=== PATIENT | female | born 1950 | race Two or more races ===

== ENCOUNTER 2019-04-18 10:13 | Inpatient (IN) | payer MEDICAID ==
[2019-04-01 10:50] LABS: BASOPHILS % (AUTO) 1.1 % (0.0-2.0); EOSINOPHILS % (AUTO) 1.8 % (0.0-3.0); HEMATOCRIT 41.5 % (37.0-47.0); HEMOGLOBIN 13.2 G/DL (12.0-16.0); LYMPHOCYTES % (AUTO) 20.3 % (20.0-45.0); MEAN CORPUSCULAR VOLUME 78 FL (80-99); MONOCYTES % (AUTO) 9.7 % (1.0-10.0); NEUTROPHILS % (AUTO) 67.2 % (45.0-75.0); PLATELET COUNT 184 K/UL (150-450); RED BLOOD COUNT 5.33 M/UL (4.20-5.40)
[2019-04-01 11:04] LABS: ANION GAP 11 mmol/L (5-15); APPEARANCE,URINE CLEAR; BILIRUBIN, URINE NEGATIVE (NEGATIVE); BLOOD UREA NITROGEN 22 mg/dL (7-18); CALCIUM 8.7 MG/DL (8.5-10.1); CARBON DIOXIDE 26 MMOL/L (21-32); CHLORIDE 104 MMOL/L (98-107); COLOR,URINE PALE YELLOW; CREATININE 0.8 MG/DL (0.55-1.30); GLUCOSE, URINE (UA) NEGATIVE (NEGATIVE); KETONES,URINE NEGATIVE (NEGATIVE); LEUKOCYTE ESTERASE ,URINE 1+ (NEGATIVE); NITRITE,URINE NEGATIVE (NEGATIVE); PH,URINE 6.5 (4.5-8.0); POTASSIUM 4.3 MMOL/L (3.5-5.1); PROTEIN,URINE NEGATIVE (NEGATIVE); SODIUM 141 MMOL/L (136-145); UROBILINOGEN,URINE NORMAL MG/DL (0.0-1.0)
[2019-04-01 11:08] LABS: INR 0.9 (0.9-1.1)
--- NOTE | 2019-04-10 16:10 | Cardiology Report ---
APPROVED REPORT EKG Measurement Heart [id number] Normal sinus rhythm Normal ECG
--- NOTE | 2019-04-17 15:30 | Pre-op HX & Phy Repo 2 SIG ---
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 The patient presented recently with a 2 cm mass in the upper outer quadrant of the right breast at 10 o'clock, 5 cm from the nipple measuring by ultrasound, 2.9 x 1.7 x 2.2 cm. Core biopsy revealed invasive ductal carcinoma and ductal carcinoma in situ. She has no prior history of breast disease. She has a sister who has a history of breast cancer. The tumor is estrogen and progesterone receptor positive, HER2 negative, Ki-67 is low at 9%. The patient has been seen by Oncology who recommended proceeding with surgery. PAST MEDICAL HISTORY AND MEDICATIONS: Losartan, metformin, atorvastatin. ALLERGIES: None. OPERATIONS: None. REVIEW OF SYSTEMS: 4, para 4. PHYSICAL EXAMINATION: GENERAL: The patient is 5 feet 4 inches, 148 pounds. VITAL SIGNS: Stable vital signs. HEENT: Within normal limits. LUNGS: Clear. HEART: Regular rhythm. BREASTS: Moderately large and ptotic. Left breast is unremarkable. Right breast has an approximate 3 cm mass in the outer right breast between the areolar border in the periphery with possible overlying skin fixation. There is no palpable axillary or supraclavicular lymphadenopathy. ABDOMEN: Soft. PELVIC AND RECTAL: Per primary care. EXTREMITIES: Without edema. NEUROLOGIC: Physiologic. IMPRESSION: Invasive ductal carcinoma and ductal carcinoma in situ, right breast. PLAN: Right breast partial mastectomy and right axillary lymph node biopsy. I have had a full discussion with the patient regarding her condition, the nature of the surgery, indications, alternatives, options, and risks including bleeding, infection, scarring, distortion of the breast and/or nipple, need for additional procedures including possible additional surgery based on final pathology as well as need for additional treatments including radiation therapy and other treatments based on final pathology. The patient understands and agrees to proceed. Kendell Barker M.D. DR: DEBORAH JOB#: [id number] CC:
[2019-04-18] VITALS (17 sets, daily range): BP systolic 111–142; BP diastolic 53–69
[~2019-04-18] VITALS: Ht 162.6 cm; Wt 68.0 kg
[2019-04-18] MEDS ORDERED: LOSARTAN POTASS50 MG ORAL (11:07)
[2019-04-18] MEDS ORDERED: ATORVASTATIN CA20 MG ORAL (11:08)
[2019-04-18] MEDS ORDERED: METFORMIN HCL500 M1 ORAL (11:08)
[2019-04-18] MEDS ORDERED: PROTONIX40 MG ORAL (11:09)
[2019-04-18] MEDS ORDERED: Vit B12 PO (11:10)
[2019-04-18] MEDS ORDERED: LR 1000ml 1,000 ML IVLG SCH (12:09)
--- NOTE | 2019-04-18 12:13 | Anethesia Preoperative Eval ---
Anesthesia Pre-op PMH/ROS General Date of Evaluation: Apr 18, 2019 Time of Evaluation: 12:24 Anesthesiologist: Ruperto ASA Score: ASA 3 Mallampati Score Class I : Soft palate, uvula, fauces, pillars visible Class II: Soft palate, uvula, fauces visible Class III: Soft palate, base of uvula visible Class IV: Only hard plate visible Mallampati Classification: Class II Surgeon: Lucero Diagnosis: R Breast CA Surgical Procedure: R Breast Partial Mastectomy , Axillary Node Dissection Anesthesia History: none Family History: no anesthesia problems Allergies: Coded Allergies: No Known Allergies (Unverified , 04/17/19) Medications: see eMAR Patient NPO?: Yes Past Medical History Cardiovascular: Reports: HTN, other - HL Gastrointestinal/Genitourinary: Reports: GERD Endocrine: Reports: DM Hematology/Immune: Reports: other - R Breast CA PSxH Narrative: Colonoscopy Anesthesia Pre-op Phys. Exam Physician Exam Last Vital Signs Date Time Temp Pulse Resp B/P (MAP) Pulse Ox O2 Delivery O2 Flow Rate FiO2 04/18/19 11:01 Room Air 04/18/19 10:54 98.8 77 18 123/60 95 Constitutional: NAD Neurologic: CN 2-12 intact Cardiovascular: RRR Respiratory: CTA Gastrointestinal: S/NT/ND Airway Exam Mallampati Score: Class II MO: full ROM: limited Teeth: missing, intact Anesthesia Pre-op A/P Risk Assessment & Plan Assessment: ASA 3 Plan: GA, SED Status Change Before Surgery: No Pre-Antibiotics Dru Gram Ancef IV Given Within 1 Hr of Incision: Yes Eugenio Hickey MD Apr 18, 2019 12:13
[2019-04-18] MEDS ORDERED: Atropine Sulfate 0.4mg/ml inj IVP PRN (12:15)
[2019-04-18] MEDS ORDERED: Labetalol 5mg/ml 20ml vial IV PRN (12:15)
[2019-04-18] MEDS ORDERED: Acetaminophen (Non formulary) 100 ML IV ONE (12:15)
[2019-04-18] MEDS ORDERED: DiphenhydrAMINE 50mg/ml Inj IVP PRN (12:15)
[2019-04-18] MEDS ORDERED: Metoclopramide 10mg/2ml Inj IVP PRN (12:15)
[2019-04-18] MEDS ORDERED: oxyCODONE HCL/Acetaminophen 5/325mg ORAL PRN (12:15)
[2019-04-18] MEDS ORDERED: HYDROcodone/Acetamin 7.5/325 tab ORAL PRN (12:15)
[2019-04-18] MEDS ORDERED: Hydromorphone 0.5mg/0.5ml inj IVP PRN (12:15)
[2019-04-18] MEDS ORDERED: Meperidine 50mg/ml Inj(FOR RIGORS ONLY) IVP PRN (12:15)
[2019-04-18] MEDS ORDERED: LORazepam Inj 2mg/ml 1ml IV PRN (12:15)
[2019-04-18] MEDS ORDERED: fentaNYL 100 mcg/2 mL IV PRN (12:15)
[2019-04-18] MEDS ORDERED: HYDROcodone/Acetamin 5/325 tab ORAL PRN (12:15)
[2019-04-18] MEDS ORDERED: Ketorolac 30mg Inj IV PRN ×2 (12:15)
[2019-04-18] MEDS ORDERED: Midazolam 2mg/2ml Inj IVP PRN (12:15)
[2019-04-18] MEDS ORDERED: NeoSporin Gu Irrig 1ml Amp IRRIG ONE (12:16)
[2019-04-18] MEDS ORDERED: Bacitracin 50000 Units Vial ONE (12:16)
[2019-04-18] MEDS ORDERED: Bupivacaine 0.5% Inj 30 ml vial INJ ONE (12:16)
[2019-04-18] MEDS ORDERED: Lidocaine 1% 10mg/ml/Epi 0.005mg/ml 30ml vial INJ ONE (12:16)
--- NOTE | 2019-04-18 12:17 | Immediate Post-Op Evaluation ---
Immediate Post-Op Evalulation Immediate Post-Op Evalulation Procedure: R Breast Partial Mastectomy , Axillary Node Dissection Date of Evaluation: Apr 18, 2019 Time of Evaluation: 16:23 IV Fluids: 900 LR Blood Products: 0 Estimated Blood Loss: 20 Urinary Output: 0 Blood Pressure Systolic: 124 Blood Pressure Diastolic: 58 Pulse Rate: 49 Respiratory Rate: 16 O2 Sat by Pulse Oximetry: 100 Temperature (Fahrenheit): 99.8 Pain Score (1-10): 2 Nausea: No Vomiting: No Complications 0 Patient Status: awake, reacts, patent, extubated, none Hydration Status: adequate Dru Gram Ancef IV Given Within 1 Hr of Incision: Yes Time Given: 12:36 Eugenio Hickey MD Apr 18, 2019 12:17
[2019-04-18] MEDS ORDERED: Lidocaine 1% Plain 30 ml INJ ONE (12:23)
[2019-04-18] MEDS ORDERED: Sodium Chloride 10ml vial INJ ONE (12:24)
[2019-04-18] MEDS ORDERED: Lidocaine 1% MPF 10mg/ml 5ml ONE (12:24)
[2019-04-18] MEDS ORDERED: fentaNYL 100 mcg/2 mL IV ONE (12:25)
[2019-04-18] MEDS ORDERED: NS Irrig 1000ml ONE (12:30)
[2019-04-18] MEDS ORDERED: LR 1000ml ONE (12:30)
[2019-04-18] MEDS ORDERED: Sterile Water Irrig 1000ml IRRIG ONE (12:30)
[2019-04-18] MEDS ORDERED: Propofol 200mg/20ml IV ONE (12:30)
--- NOTE | 2019-04-18 12:32 | Pre-Procedure Note/Attestation ---
Pre-Procedure Note/Attestation Complete Prior to Procedure Planned Procedure: right Procedure Narrative: right breast partial mastectomy and right axillary lymph node biopsy Indications for Procedure Pre-Operative Diagnosis: invasive ductal carcinoma and ductal carcinoma in situ right breast Attestation I attest that I discussed the nature of the procedure; its benefits; risks and complications; and alternatives (and the risks and benefits of such alternatives ), prior to the procedure, with the patient (or the patient's legal financial representative). I attest that, if there was a reasonable possibility of needing a blood transfusion, the patient (or the patient's legal financial representative) was given the [facility] standardized written summary, pursuant to the [place] Blood Safety Act ([place] Health and Safety Code # 1645, as amended). I attest that I re-evaluated the patient just prior to the surgery and that there has been no change in the patient's H&P, except as documented below: none Kendell Barker MD Apr 18, 2019 12:32
[2019-04-18] MEDS ORDERED: Flumazenil 0.1mg/ml 5ml Inj IV ONE (13:47)
[2019-04-18] MEDS ORDERED: HYDROmorphone 1mg/ml Carpuject SUBQ PRN (14:00)
--- NOTE | 2019-04-18 14:06 | Brief Operative Note ---
Immediate Post Operative Note Operative Note Pre-op Diagnosis: invasive ductal carcinoma and ductal carcinoma in situ right breast Procedure: right breast partial mastectomy and right axillary lymph node biopsy Post-op Diagnosis: same Post-op Diagnosis: same as pre-op Findings: consistent w/pre-op dx studies Surgeon: sheridan Anesthesiologist: enzo Anesthesia: general Specimen: yes - right breast cancer, right axillary lymph nodes Complications: none Condition: stable Fluids: see anesthesia record Estimated Blood Loss: minimal Drains: CIELO Implant(s) used?: No Kendell Barker MD Apr 18, 2019 14:06
[2019-04-18] MEDS ORDERED: D5 1/2NS w/KCl 20mEq 1,000 ML IV SCH (17:00)
[2019-04-18] MEDS: 1/2NS w/KCl 20mEq 1000ml 1,000 ML IV SCH (17:38)
[2019-04-18] MEDS: ceFAZolin sod 1 GM in D5W 55 ML IV SCH (20:23)
[2019-04-18] MEDS: HYDROcodone/Acetamin 5/325 tab ORAL PRN (22:23)
[2019-04-19] VITALS: BP 102/59
[2019-04-19 03:55] VITALS: BP 115/60
[2019-04-19] MEDS: ceFAZolin sod 1 GM in D5W 55 ML IV SCH (04:20)
[2019-04-19] MEDS: 1/2NS w/KCl 20mEq 1000ml 1,000 ML IV SCH (05:50)
[2019-04-19] MEDS: HYDROcodone/Acetamin 5/325 tab ORAL PRN (07:05)
[2019-04-19 08:00] VITALS: BP 108/54
--- NOTE | 2019-04-19 08:59 | General Progress Note ---
Progress Note Progress Note Doing well, Abbie for pain right breast and axilla incisions clean and dry with intact steristrips scant CIELO drainage Imp. doing well Plan: discharge Rx [place] #30 f/u office 04/23 - continue with CIELO drain Instructions/supplies/limitations provided/discussed Kendell Barker MD Apr 19, 2019 08:59
[2019-04-19] MEDS ORDERED: metFORMIN 500mg tab ORAL SCH (09:00)
[2019-04-19] MEDS ORDERED: Losartan 50mg tab ORAL SCH (09:00)
[2019-04-19] MEDS ORDERED: HYDROCODON-ACE1 EA15 ORAL (10:37)
[2019-04-19 12:00] VITALS: BP 101/54
[2019-04-19 16:29] VITALS: BP 101/54
--- NOTE | 2019-04-19 16:29 | 48 Hour Post Anesthesia Eval ---
Post Anesthesia Evaluation Procedure: R Breast Partial Mastectomy , Axillary Node Dissection Date of Evaluation: Apr 19, 2019 Time of Evaluation: 16:29 Blood Pressure Systolic: 101 0: 54 Pulse Rate: 70 Respiratory Rate: 14 O2 Sat by Pulse Oximetry: 98 Airway: patent Nausea: No Vomiting: No Hydration Status: adequate Cardiopulmonary Status: stable Mental Status/LOC: patient returned to baseline Post-Anesthesia Complications: none Follow-up care needed: N/A Karina Siddiqui CRNA Apr 19, 2019 16:29
--- NOTE | 2019-04-21 10:36 | Discharge Summary ---
Discharge Summary Discharge Summary _ DATE OF ADMISSION: 04/18/2019 DATE OF DISCHARGE: 04/19/2019 DISCHARGED BY: Dr. 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 The patient presented recently with a 2 cm mass in the upper outer quadrant of the right breast at 10 o'clock, 5 cm from the nipple measuring by ultrasound, 2.9 x 1.7 x 2.2 cm. Core biopsy revealed invasive ductal carcinoma and ductal carcinoma in situ. She has no prior history of breast disease. She has a sister who has a history of breast cancer. The tumor is estrogen and progesterone receptor positive, HER2 negative, Ki-67 is low at 9%. The patient has been seen by Oncology who recommended proceeding with surgery. BRIEF HOSPITAL COURSE: Patient underwent right breast partial mastectomy and right axillary lymph node biopsy. Postoperatively, she was admitted for postop care. She was given IV hydration. She was given pain management. She was continued on preadmission medications, metformin and losartan. She was placed on SCDs for DVT prophylaxis. She was encouraged use of incentive spirometer. Overnight, patient was doing well. Pain was well-controlled with Marydel. Incisions were clean and dry with intact Steri-Strips. There was scant CIELO drainage. She was cleared for discharge home, to follow-up on 04/23/19. Continue with CIELO drain. Instructions/supplies/limitations were provided and discussed. FINAL DIAGNOSES: Invasive ductal carcinoma and ductal cell carcinoma in situ of the right breast PROCEDURE: Right breast partial mastectomy and right axillary lymph node biopsy DISPOSITION: Patient was discharged home. DISCHARGE MEDICATIONS: Refer to Discharge Medication List. DISCHARGE INSTRUCTIONS: Follow-up on 04-23-19. I have been assigned to complete a discharge summary on this account, I was not involved with the patient's management.--IRLANDA Wheatley Jacqueline Robles NP Apr 21, 2019 10:36
--- NOTE | 2019-04-23 09:00 | Operative Note - Dictated ---
DATE OF OPERATION: 04/18/2019 SURGEON: Kendell Barker M.D. SHIP PROPELLER FINISHER: None. ANESTHESIOLOGIST: Eugenio Hickey M.D. TYPE OF ANESTHESIA: General endotracheal. PREOPERATIVE DIAGNOSIS: Invasive ductal carcinoma and ductal carcinoma in situ, right breast. POSTOPERATIVE DIAGNOSIS: Invasive ductal carcinoma and ductal carcinoma in situ, right breast. OPERATION PERFORMED: Right breast partial mastectomy and right axillary lymph node biopsy. DESCRIPTION OF PROCEDURE: The patient was taken to the operating room and under general anesthesia with sequential compression device stockings in place, she was prepped and draped in usual fashion. The patient had a 3 cm mass in the upper outer quadrant of the right breast. Estrogen and progesterone receptor positive, HER2 negative, Ki-67 9%. A curvilinear incision was made including an elliptical excision of overlying skin, which appeared partially fixed to the underlying mass. Flaps were dissected circumferentially, achieving hemostasis with cautery. The mass was resected with wide margins, orienting the specimen with sutures in medial and superior area in the skin marking anterior. Pathologist indicated the superior anterior margin was closed and additional tissue was taken in that area. The wound was carefully irrigated and inspected, and hemostasis secured with cautery. The incision was closed with interrupted 3-0 Vicryl deep dermal subcutaneous sutures followed by continuous 4-0 Monocryl subcuticular suture. A right axillary incision was made, achieving hemostasis with cautery and incising the clavipectoral fascia. There were two obvious lower level lymph nodes that were excised using the Thunderbeat electrosurgical device. Through a separate stab incision inferiorly and laterally, a 10 flat Darrion-Peterson was placed into the axilla and sutured the skin with 2-0 nylon suture. Pathologist confirmed the presence of lymph nodes in the tissue. The field was irrigated and hemostasis secured. The clavipectoral fascia closed with interrupted 3-0 Vicryl, subcutaneous tissues closed with interrupted 3-0 Vicryl, and skin closed with continuous 4-0 Monocryl subcuticular suture. Mastisol and half-inch Steri-Strips were applied to both incisions followed by dry sterile dressing and application of a surgical brassiere. The patient tolerated the procedure well and left the operating room in good condition. Kendell Barker M.D. DR: DEBORAH JOB#: [id number] CC:
== END 2019-04-19 15:00 | disposition home or self-care (01) | DRG 363 ==
LOC: EDBD → SUR 10:13 → 3E 16:25
PROC: 07B50ZX Excision of Right Axillary Lymphatic, Open Approach, Diagnostic (ICD-10-PCS; 2019-04-18)
PROC: 0HBT0ZZ Excision of Right Breast, Open Approach (ICD-10-PCS; principal; 2019-04-18 12:30)
DX: C50.411 Malignant neoplasm of upper-outer quadrant of right female breast (principal); Z17.0 Estrogen receptor positive status [ER+]; Z80.3 Family history of malignant neoplasm of breast; E11.9 Type 2 diabetes mellitus without complications; Z79.84 Long term (current) use of oral hypoglycemic drugs
CPT/HCPCS: 36415; 80048; 81001; 85025; 85610; 85730; 87081; 93005; 94003; 94150; J2405